=== PATIENT | female | born 1955 | race Caucasian/White ===

== ENCOUNTER 2017-10-16 09:54 | Emergency (ER) | payer BC ==
[2017-10-16] MEDS: Sodium Chloride 0.9% 1,000 ML IV SCH (10:32)
[2017-10-16] MEDS: Ondansetron 4 MG/2 ML SDV IV ONE (10:32)
[2017-10-16 11:10] LABS: ANION GAP 13.8; CHLORIDE,CL 104 mmol/L (101-111); SODIUM,NA 139 mmol/L (135-145)
[2017-10-16] MEDS: Famotidine 20 MG/2 ML SDV IVPUSH ONE (11:51)
[2017-10-16] MEDS: Metoclopramide 10 MG/2 ML SDV IVPUSH ONE (11:53)
[2017-10-16] MEDS: Morphine 2 MG/ML Syringe IVPUSH ONE (11:56)
[2017-10-16 12:00] VITALS: BP 126/72
[2017-10-16] MEDS: Iopamidol 612 MG/ML 100 ML Bottle IVPUSH ONE (12:15)
[2017-10-16] MEDS: Sodium Chloride 0.9% 1,000 ML IV ONE (12:29)
--- NOTE | 2017-10-16 12:48 | CT ---
Clinical history: 62-year-old hypertensive female smoker with abdominal distention, pain and vomiting who has had previous abdominal surgeries (cholecystectomy and hysterectomy). Scan technique: Volume acquisition of data from the abdomen and pelvis obtained without oral contrast but during the intravenous ministration 75 cc nonionic Isovue contrast (3 cc/s via injector) while t he patient was lying supine Siemens multi slice scanner [facility]. All data archived in the PACS system for storage, reformatting axial/sagittal/coronal planes and study. Interpretation: 1. *Surgical clips gallbladder fossa RUQ. Distal abdominal aortic aneurysm just proximal to the commo n iliac artery bifurcation (4.6 cm L x 4.1 cm W x 3.9 cm AP diameter). No retroperitoneal dissection or aneurysmal extension into the iliac arteries. Note: Aneurysm appears larger in cross sectional diameter since MRI exam (3.5 cm) 17 January 2016. 2. Numerous diverticula scattered across course of the entire colon i.e. peralta colonic diverticulosis w ithout associated inflammatory "dirty" peritoneal fat, abscess or signs of mechanical bowel obstructi on. 3. Subtle low attenuation lesions (x2) anteriorly lower margin right lobe of the liver that measure a pproximately 2 cm in diameter. No abnormal dilatation of the intra or extrahepatic biliary ducts. Nor mal hepatic size and anatomic configuration. 4. Stomach, spleen, pancreas, adrenal glands and kidneys unremarkable. Symmetrically distended normal Urinary bladder. 5. No pelvic/abdominal mass lesion, significant mesenteric/retroperitoneal lymphadenopathy or inflamm atory "dirty" peritoneal fat. 6. No ventral wall or inguinal hernias. Normal cardiac silhouette. Lung bases clear. Lumbar spine unr emarkable for age. CONCLUSION: Small distal abdominal aortic aneurysm. Pancolonic diverticulosis. Cholecystectomy and henderson btle abnormality right lobe of the liver. (See above) No intraperitoneal mass, signs of mechanical laure wel obstruction or acute peritonitis.
--- NOTE | 2017-10-16 13:27 | EDM.PDOC ---
ED HPI GENERAL MEDICAL PROBLEM - General Chief Complaint: Gastrointestinal Problem Stated Complaint: SICK Time Seen by Provider: 10/16/17 10:00 Source of Information: Reports: Patient History Limitations: Reports: No Limitations - History of Present Illness INITIAL COMMENTS - FREE TEXT/NARRATIVE: abdominal pain and vomiting since Saturday carlin - Related Data Allergies Allergy/AdvReac Type Severity Reaction Status Date / Time No Known Allergies Allergy Verified 10/16/17 10:03 Home Meds: Home Meds Losartan [Cozaar] 50 mg PO DAILY 07/11/15 [History] Metoprolol Succinate [Toprol XL 100mg] 100 mg PO DAILY 07/11/15 [History] Rosuvastatin [Crestor] 40 mg PO DAILY 07/11/15 [History] DULoxetine HCl [Duloxetine HCl] 60 mg PO DAILY 10/16/17 [History] Past Medical History HEENT History: Reports: Impaired Vision Other HEENT History: wears glasses Cardiovascular History: Reports: High Cholesterol, Hypertension Respiratory History: Reports: Other (See Below) Other Respiratory History: pluesy Gastrointestinal History: Reports: GERD Neurological History: Reports: CVA Psychiatric History: Reports: Depression - Past Surgical History GI Surgical History: Reports: Cholecystectomy Social & Family History - Family History Family Medical History: Noncontributory - Tobacco Use Smoking Status *Q: Current Every Day Smoker Years of Tobacco use: 40 Packs/Tins Daily: 1 - Caffeine Use Caffeine Use: Reports: Coffee, Soda - Recreational Drug Use Recreational Drug Use: No ED ROS GENERAL - Review of Systems Review Of Systems: See Below Constitutional: Reports: Fatigue, Decreased Appetite HEENT: Reports: No Symptoms, Glasses Respiratory: Reports: No Symptoms Cardiovascular: Reports: Lightheadedness GI/Abdominal: Reports: Abdominal Pain, Decreased Appetite, Distension, Nausea, Vomiting. Denies: Constipation, Diarrhea, Hematemesis : Reports: No Symptoms Musculoskeletal: Reports: No Symptoms Skin: Reports: No Symptoms Neurological: Reports: No Symptoms Psychiatric: Reports: No Symptoms Immunologic: Reports: No Symptoms ED EXAM, GI/ABD - Physical Exam Exam: See Below Exam Limited By: No Limitations General Appearance: Alert, Mild Distress Eyes: Bilateral: EOMI Ears: Normal External Exam Nose: Normal Inspection Throat/Mouth: Normal Inspection Head: Atraumatic, Normocephalic Neck: Normal Inspection Respiratory/Chest: No Respiratory Distress, Lungs Clear, Normal Breath Sounds Cardiovascular: Normal Peripheral Pulses, Regular Rate, Rhythm, No Edema GI/Abdominal Exam: No Distention, No Mass, Tender (general greater epigastric). No: Distended, Guarding Back Exam: Full Range of Motion Extremities: Normal Inspection Neurological: Alert, Oriented, Normal Cognition Skin Exam: Warm, Dry, Intact, Pallor Course - Vital Signs Last Recorded V/S: Last Vital Signs Temp 98.2 F 10/16/17 11:58 Pulse 83 10/16/17 11:58 Resp 16 10/16/17 11:58 BP 126/72 10/16/17 11:58 Pulse Ox 95 10/16/17 11:58 - Orders/Labs/Meds Orders: Active Orders 24 hr Category Date Time Status EKG Documentation Completion [RC] ROUTINE Care 10/16/17 10:48 Active UA W/MICROSCOPIC [URIN] Stat Lab 10/16/17 11:06 Ordered Labs: Laboratory Tests 10/16/17 10/16/17 10/16/17 Range/Units 10:19 10:19 10:19 WBC 8.8 (5.0-10.0) 10^3/uL RBC 5.01 (4.2-5.4) 10^6/uL Hgb 15.1 D (12.0-16.0) g/dL Hct 46.2 (37.0-47.0) % MCV 92.2 D (80-100) fL MCH 30.1 (27.0-34.0) pg MCHC 32.7 L (33.0-35.0) g/dL Plt Count 161 D (150-450) 10^3/uL Neut % (Auto) 73.6 (42.2-75.2) % Lymph % (Auto) 17.5 L (20.5-50.1) % Eddy % (Auto) 6.2 (2-8) % Eos % (Auto) 2.5 (1.0-3.0) % Baso % (Auto) 0.2 (0.0-1.0) % Sodium 139 (135-145) mmol/L Potassium 3.8 (3.6-5.0) mmol/L Chloride 104 (101-111) mmol/L Carbon Dioxide 25.0 (21.0-31.0) mmol/L Anion Gap 13.8 BUN 22 H (7-18) mg/dL Creatinine 1.3 (0.6-1.3) mg/dL Est Cr Clr Drug Dosing 41.47 mL/min Estimated GFR (MDRD) 41 BUN/Creatinine Ratio 16.92 Glucose 136 H (74-105) mg/dL Calcium 10.9 H (8.4-10.2) mg/dl Total Bilirubin 0.7 (0.2-1.0) mg/dL AST 29 (10-42) IU/L ALT 15 (10-60) IU/L Alkaline Phosphatase 105 (42-121) IU/L Troponin I < 0.02 (0.00-0.02) ng/ml C-Reactive Protein 4.6 H (0.0-1.3) mg/dL Total Protein 7.9 (6.7-8.2) g/dl Albumin 4.3 (3.2-5.5) g/dl Globulin 3.6 Albumin/Globulin Ratio 1.19 Urine Color (YELLOW) Urine Appearance (CLEAR) Urine pH (5.0-9.0) Ur Specific [place] (1.005-1.030) Urine Protein (NEGATIVE) Urine Glucose (UA) (NEGATIVE) Urine Ketones (NEGATIVE) Urine Occult Blood (NEGATIVE) Urine Nitrite (NEGATIVE) Urine Bilirubin (NEGATIVE) Urine Urobilinogen (0.2-1.0) mg/dL Ur Leukocyte Esterase (NEGATIVE) Urine RBC /HPF Urine WBC (0-5/HPF) /HPF Ur Epithelial Cells /HPF Amorphous Sediment (0/HPF) /HPF Urine Bacteria (0-FEW/HPF) /HPF Fine Granular Casts (0/LPF) /LPF Urine Mucus /LPF 10/16/17 Range/Units 11:06 WBC (5.0-10.0) 10^3/uL RBC (4.2-5.4) 10^6/uL Hgb (12.0-16.0) g/dL Hct (37.0-47.0) % MCV (80-100) fL MCH (27.0-34.0) pg MCHC (33.0-35.0) g/dL Plt Count (150-450) 10^3/uL Neut % (Auto) (42.2-75.2) % Lymph % (Auto) (20.5-50.1) % Eddy % (Auto) (2-8) % Eos % (Auto) (1.0-3.0) % Baso % (Auto) (0.0-1.0) % Sodium (135-145) mmol/L Potassium (3.6-5.0) mmol/L Chloride (101-111) mmol/L Carbon Dioxide (21.0-31.0) mmol/L Anion Gap BUN (7-18) mg/dL Creatinine (0.6-1.3) mg/dL Est Cr Clr Drug Dosing mL/min Estimated GFR (MDRD) BUN/Creatinine Ratio Glucose (74-105) mg/dL Calcium (8.4-10.2) mg/dl Total Bilirubin (0.2-1.0) mg/dL AST (10-42) IU/L ALT (10-60) IU/L Alkaline Phosphatase (42-121) IU/L Troponin I (0.00-0.02) ng/ml C-Reactive Protein (0.0-1.3) mg/dL Total Protein (6.7-8.2) g/dl Albumin (3.2-5.5) g/dl Globulin Albumin/Globulin Ratio Urine Color Dark yellow (YELLOW) Urine Appearance Cloudy (CLEAR) Urine pH 5.5 (5.0-9.0) Ur Specific [place] >= 1.030 (1.005-1.030) Urine Protein >=300 H (NEGATIVE) Urine Glucose (UA) Negative (NEGATIVE) Urine Ketones Negative (NEGATIVE) Urine Occult Blood Negative (NEGATIVE) Urine Nitrite Negative (NEGATIVE) Urine Bilirubin Small H (NEGATIVE) Urine Urobilinogen 0.2 (0.2-1.0) mg/dL Ur Leukocyte Esterase Negative (NEGATIVE) Urine RBC 0-5 /HPF Urine WBC 0-5 (0-5/HPF) /HPF Ur Epithelial Cells Many H /HPF Amorphous Sediment Few (0/HPF) /HPF Urine Bacteria Few (0-FEW/HPF) /HPF Fine Granular Casts Few H (0/LPF) /LPF Urine Mucus Many H /LPF Meds: Medications Discontinued Medications Generic Name Dose Route Start Last Admin Trade Name Freq PRN Reason Stop Dose Admin Famotidine 20 mg 10/16/17 11:40 10/16/17 11:51 Pepcid IVPUSH 10/16/17 11:41 20 mg ONETIME ONE Administration Sodium Chloride 1,000 mls @ 999 mls/hr 10/16/17 10:30 10/16/17 10:32 Normal Saline IV 999 mls/hr ASDIRECTED EMILIANO Administration Sodium Chloride 1,000 mls @ 999 mls/hr 10/16/17 12:11 10/16/17 12:29 Normal Saline IV 10/16/17 13:11 999 mls/hr .BOLUS ONE Administration Iopamidol 100 ml 10/16/17 11:41 10/16/17 12:15 Isovue-300 (61%) IVPUSH 10/16/17 11:42 75 ml ONETIME ONE Administration Metoclopramide HCl 10 mg 10/16/17 11:40 10/16/17 11:53 Reglan IVPUSH 10/16/17 11:41 10 mg ONETIME ONE Administration Morphine Sulfate 2 mg 10/16/17 11:40 10/16/17 11:56 Morphine IVPUSH 10/16/17 11:41 2 mg ONETIME ONE Administration Ondansetron HCl 4 mg 10/16/17 10:24 10/16/17 10:32 Zofran IV 10/16/17 10:25 4 mg ONETIME ONE Administration Departure - Departure Time of Disposition: 13:22 Disposition: Home, Self-Care 01 Condition: Good Clinical Impression: Vomiting, Gastroenteritis Diverticulosis Qualifiers: Diverticulosis site: diverticulosis of small and large intestine Diverticulosis bleeding: diverticulosis without bleeding Qualified Code(s): K57.50 - Diverticulosis of both small and large intestine without perforation or abscess without bleeding - Discharge Information *PRESCRIPTION DRUG MONITORING PROGRAM REVIEWED*: No *COPY OF PRESCRIPTION DRUG MONITORING REPORT IN PATIENT MAGUI: No Instructions: Viral Gastroenteritis, Adult, [id number] Referrals: Alejandra Scott PA-C [Primary Care Provider] - Forms: ED Department Discharge Additional Instructions: clear liquid diet, small sips gradual increase in amount and frequency omeprazole 20mg one twice daily for 5 days then daily bland diet follow with primary care in one - two weeks zofran 4mg odt one every 6 hours as needed for nausea vomiting - My Orders Last 24 Hours: My Active Orders 10/16/17 10:48 EKG Documentation Completion [RC] ROUTINE 10/16/17 11:06 UA W/MICROSCOPIC [URIN] Stat - Assessment/Plan Last 24 Hours: My Active Orders 10/16/17 10:48 EKG Documentation Completion [RC] ROUTINE 10/16/17 11:06 UA W/MICROSCOPIC [URIN] Stat
--- NOTE | 2017-10-18 14:18 | EKG ---
10/16/2017 - JOHANA MARTINEZ LESLIE - FINDINGS: This 12-lead EKG shows a normal sinus rhythm with a ventricular rate of 77. Occasional premature atrial complex. No acute ST-T wave changes. [facility] /[id number]
== END 2017-10-16 13:48 | disposition home or self-care (01) ==
LOC: DL.ED 09:54
DX: K57.50 Diverticulosis of both small and large intestine without perforation or abscess without bleeding (principal); K52.9 Noninfective gastroenteritis and colitis, unspecified; F17.210 Nicotine dependence, cigarettes, uncomplicated; I10 Essential (primary) hypertension; Z79.899 Other long term (current) drug therapy
CPT/HCPCS: 36415; 74177; 80053; 81001; 84484; 85025; 86140; 93005; 96361; 96374; 96375; 99285; J2270; J2405; J2765; J3490; J7030; Q9967

== ENCOUNTER 2020-01-11 06:19 | Day surgery (SDC) | payer MEDICARE, MEDICAID ==
[~2020-01-11 06:19] MED LIST: Dextrose 5%-0.45% NaCl 1,000 ML IV SCH; Midazolam 1 MG/ML 2 ML SDV ONE; Sodium Chloride 0.9% 10 ML Syringe FLUSH PRN; fentaNYL 100 MCG/2 ML SDV ONE
[2020-01-11] MEDS ORDERED: Midazolam 1 MG/ML 2 ML SDV IV ONE ×3 (06:20→07:40)
[2020-01-11] MEDS ORDERED: fentaNYL 100 MCG/2 ML SDV IV ONE ×3 (06:20→07:39)
[2020-01-11 10:04] VITALS: BP 143/79; PULSE 72
--- NOTE | 2020-01-11 10:12 | OR ---
DATE: 01/11/2020 PROCEDURE: Esophagogastroduodenoscopy and multiple pinch biopsies. INSTRUMENT USED: [id number] Olympus video panendoscope. PREMEDICATIONS: No oral or topical anesthesia used. Fentanyl 100 mcg intravenous, Versed 2 mg intravenous. Nasal O2 cannula. The procedure was done under pulse oximetry, BP recording, and hemp fiber taker off. INDICATION: The patient with persistent multiple abdominal symptoms, including abdominal pain, dyspepsia, regurgitation, heartburn, as well as dysphagia, unexplained and not responsive to medical measures, also has anemia, on long- term aspirin and also on PPI. Esophagogastroduodenoscopy is performed for detection of any active erosive lesions, Thomas esophagus and/or malignancy also under consideration, H. pylori status to be determined, small bowel biopsies to be obtained for celiac disease, esophageal dilatations if indicated, endoscopic hemostasis therapy if needed. The scope was passed with ease. Adequate visualization of the esophagus was made from [id number] areas. No upper esophageal lesions identified. No distal esophageal stricture. No uphill or downhill esophageal varices. No Julia-Abreu tear. No evidence of erosive esophagitis by Ziebach criteria. No esophageal polyp or tumor mass identified. Z-line was seen at around 40 cm distal to the oral verge, configuration consistent with grade 1 by ZAP classification. No proximal gastric varices noted. Gastric fundus examination by retroflexion showed no polypoid lesions. No gastric ulcer, malignant mass, or vascular ectasia identified. Pre-pyloric gastric antral erosion was noted without bleeding from it. The examination was a bit compromised due to the presence of solid food material, especially large in amount in the antrum limiting visualization. Duodenal bulb showed no ulcer. Visualized second part of the duodenum was unremarkable. Multiple pinch biopsies, 4 in number were taken from different areas of the second part of the duodenum and tissues were also obtained from the duodenal bulb at 9 and 12 o'clock positions and sent for histopathological evidence of celiac disease. Multiple pinch biopsies were also obtained from the gastric antrum and proximal body and send for PyloriTek test for H. pylori and histopathology. No bleeding was noted from any of the visualized areas at the completion of examination. IMPRESSION: 1. Gastroparesis. 2. Gastric antral erosion. The patient tolerated the procedure well. MOD /[id number]
== END 2020-01-11 09:48 | disposition home or self-care (01) ==
LOC: DL.ENDO 06:19
PROVIDERS: ATTEND Internal Medicine Gastroenterology
DX: K29.50 Unspecified chronic gastritis without bleeding (principal); K31.89 Other diseases of stomach and duodenum; K25.9 Gastric ulcer, unspecified as acute or chronic, without hemorrhage or perforation; K31.84 Gastroparesis; E66.09 Other obesity due to excess calories; E78.5 Hyperlipidemia, unspecified; I12.9 Hypertensive chronic kidney disease with stage 1 through stage 4 chronic kidney disease, or unspecified chronic kidney disease; N18.9 Chronic kidney disease, unspecified; F41.1 Generalized anxiety disorder; F32.9 Major depressive disorder, single episode, unspecified; F17.210 Nicotine dependence, cigarettes, uncomplicated; I71.4 Abdominal aortic aneurysm, without rupture; M54.5 Low back pain; R73.9 Hyperglycemia, unspecified; Z90.710 Acquired absence of both cervix and uterus; Z86.73 Personal history of transient ischemic attack (TIA), and cerebral infarction without residual deficits; Z90.49 Acquired absence of other specified parts of digestive tract; Z88.5 Allergy status to narcotic agent; Z88.8 Allergy status to other drugs, medicaments and biological substances; Z68.33 Body mass index [BMI] 33.0-33.9, adult
CPT/HCPCS: 43239; 87077; J2250; J3010; J7042

== ENCOUNTER 2020-04-11 10:58 | Emergency (ER) | payer MEDICARE, MEDICAID ==
[2020-04-11 11:30] VITALS: BP 168/79; PULSE 71
--- NOTE | 2020-04-11 11:48 | EDM.PDOC ---
<Niall Logan Marques - Last Filed: 04/11/20 15:22> ED HPI GENERAL MEDICAL PROBLEM - General Chief Complaint: Abdominal Pain Stated Complaint: ABD SWELLING Time Seen by Provider: 04/11/20 11:15 Source of Information: Reports: Patient, Family History Limitations: Reports: No Limitations - History of Present Illness INITIAL COMMENTS - FREE TEXT/NARRATIVE: 64 y/o f c/o abd for several days. Was recently evaluated her at the hospital for pancreatitis and abdominal pain. Pt states she feels constipated and has not had a good bowel movement in 3 days. Pt was prescribed Lactulose for her constipation but quit taking it because it caused her diarrhea. Daughter states pt has been fatigued, weak and sleeping al ot since her discharge from [facility] on 03-10 this year. Hx of renal disease, aortic stent placement, constipation. Denies fever, cough, chills, cp, sob, extremity pain, difficulty with urination. Onset: Unknown/Unsure Duration: Day(s): Location: Reports: Abdomen, Generalized Quality: Reports: Ache, Pressure Severity: Mild Improves with: Reports: None Worsens with: Reports: Movement Associated Symptoms: Reports: Malaise - Related Data Allergies Allergy/AdvReac Type Severity Reaction Status Date / Time codeine Allergy Abdominal Verified 01/18/20 10:21 Pain lisinopril Allergy Cough Verified 01/18/20 10:21 cats Allergy Cough Uncoded 01/18/20 10:21 Home Meds: Home Meds Metoprolol Succinate [Toprol XL 100mg] 100 mg PO DAILY 07/11/15 [History] Aspirin 81 mg PO DAILY 01/08/20 [History] Cinacalcet [Sensipar] 30 mg PO DAILY 01/08/20 [History] Escitalopram [Lexapro] 20 mg PO DAILY 01/08/20 [History] Folic Acid 1 mg PO DAILY 01/08/20 [History] Furosemide 80 mg PO ASDIRECTED 01/08/20 [History] Gabapentin [Neurontin] 100 mg PO TID 01/08/20 [History] Mupirocin Oint [Bactroban Oint] 1 squirt TOP ASDIRECTED 01/08/20 [History] Potassium Chloride 10 meq PO DAILY 01/08/20 [History] atorvaSTATin Calcium [Atorvastatin Calcium] 40 mg PO BEDTIME 01/08/20 [History] busPIRone [Buspar] 5 mg PO BID 01/08/20 [History] calcitrioL [Calcitriol] 0.5 mcg PO ASDIRECTED 01/08/20 [History] clonazePAM [Clonazepam] 0.5 mg PO DAILY 01/08/20 [History] gemfibroziL [Gemfibrozil] 300 mg PO BID 01/08/20 [History] hydrOXYzine HCL [hydrOXYzine] 25 mg PO TID PRN 01/08/20 [History] Lactulose 15 ml PO DAILY 01/18/20 [History] Nicotine Polacrilex [Nicotine Gum] 2 mg CHEW ASDIRECTED 01/18/20 [History] Pantoprazole [ProTONIX] 40 mg PO DAILY 01/18/20 [History] Past Medical History HEENT History: Reports: Glaucoma, Impaired Vision, Other (See Below) Other HEENT History: wears glasses. L) eye blindness. 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: Musculoskeletal History: Reports: Arthritis, Back Pain, Chronic Neurological History: Reports: CVA, Other (See Below) Other Neuro History: CEREBRAL VASCULAR DISEASE Psychiatric History: Reports: Anxiety, Depression Endocrine/Metabolic History: Reports: Hyperparathyroidism, Obesity/BMI 30+ Hematologic History: Reports: Anemia Immunologic History: Reports: None Oncologic (Cancer) History: Reports: None Dermatologic History: Reports: None - Infectious Disease History Infectious Disease History: Reports: Chicken Pox, Measles, Mumps - Past Surgical History Head Surgeries/Procedures: Reports: None HEENT Surgical History: Reports: Oral Surgery Cardiovascular Surgical History: Reports: None Respiratory Surgical History: Reports: None GI Surgical History: Reports: Cholecystectomy, Hernia Repair/Other Female Surgical History: Reports: Hysterectomy, Tubal Ligation Endocrine Surgical History: Reports: None Neurological Surgical History: Reports: None Musculoskeletal Surgical History: Reports: None Oncologic Surgical History: Reports: None Dermatological Surgical History: Reports: None Social & Family History - Family History Family Medical History: No Pertinent Family History - Tobacco Use Tobacco Use Status *Q: Current Every Day Tobacco User Years of Tobacco use: 43 Packs/Tins Daily: 1 - Caffeine Use Caffeine Use: Reports: None Other Caffeine Use: COUPLE OF CUPS IN THE AM - Recreational Drug Use Recreational Drug Use: No ED ROS GENERAL - Review of Systems Review Of Systems: Comprehensive ROS is negative, except as noted in HPI. ED EXAM, GI/ABD - Physical Exam Exam: See Below Exam Limited By: No Limitations General Appearance: Alert Ears: Normal External Exam, Normal Canal, Hearing Grossly Normal, Normal TMs Nose: Normal Inspection, Normal Mucosa, No Blood Throat/Mouth: Normal Inspection, Normal Lips, Normal Teeth, Normal Gums, Normal Oropharynx, Normal Voice, No Airway Compromise Head: Atraumatic, Normocephalic Neck: Normal Inspection, Supple, Non-Tender, Full Range of Motion Respiratory/Chest: No Respiratory Distress, Lungs Clear, Normal Breath Sounds, No Accessory Muscle Use, Chest Non-Tender Cardiovascular: Normal Peripheral Pulses, Regular Rate, Rhythm, No Edema, No Gallop, No JVD, No Murmur, No Rub GI/Abdominal Exam: Normal Bowel Sounds, Tender (Female) Exam: Deferred Extremities: Normal Inspection, Normal Range of Motion, No Pedal Edema Neurological: Alert, Oriented, CN II-XII Intact, Normal Cognition, Normal Gait, Normal Reflexes, No Motor/Sensory Deficits Psychiatric: Normal Affect, Normal Mood Skin Exam: Warm, Dry, Intact, Normal Color, No Rash Course - Re-Assessments/Exams Free Text/Narrative Re-Assessment/Exam: 04/11/20 15:22 Pt is feeling much better after fluid administrations and would like to be discharged home. Pt has a nephrology appointment on Saturday with her doctor in [place]. Departure - Departure Time of Disposition: 15:23 Disposition: Home, Self-Care 01 Condition: Good Clinical Impression: Dehydration Constipation Qualifiers: Constipation type: unspecified constipation type Qualified Code(s): K59.00 - Constipation, unspecified - Discharge Information *PRESCRIPTION DRUG MONITORING PROGRAM REVIEWED*: Not Applicable *COPY OF PRESCRIPTION DRUG MONITORING REPORT IN PATIENT MAGUI: Not Applicable Instructions: Constipation, Adult, [id number], Dehydration, Adult, [id number] Forms: ED Department Discharge Additional Instructions: If any new symptoms or concerns develop contact your primary care facility or return to the ER. 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 Continue to use your lactulose and consider Metamucil to help establish regular bowel habits. Stay hydrated and continue your dialysis at home. Sepsis Event Note (ED) - Evaluation Sepsis Screening Result: No Definite Risk <Kodak Mancera - Last Filed: 04/11/20 15:32> Course - Vital Signs Last Recorded V/S: Last Vital Signs Temp 35.3 C L 04/11/20 11:20 Pulse 71 04/11/20 11:20 Resp 18 04/11/20 11:20 BP 168/79 H 04/11/20 11:20 Pulse Ox 93 L 04/11/20 11:20 - Orders/Labs/Meds Orders: Active Orders 24 hr Category Date Time Status EKG Documentation Completion [RC] STAT Care 04/11/20 11:22 Active Labs: Laboratory Tests 04/11/20 04/11/20 04/11/20 Range/Units 11:38 11:38 11:38 WBC 6.0 (5.0-10.0) 10^3/uL RBC 3.12 L (4.2-5.4) 10^6/uL Hgb 8.6 L D (12.0-16.0) g/dL Hct 27.3 L (37.0-47.0) % MCV 87.5 D (80-100) fL MCH 27.6 (27.0-34.0) pg MCHC 31.5 L (33.0-35.0) g/dL Plt Count 147 L (150-450) 10^3/uL Neut % (Auto) 76.0 H (42.2-75.2) % Lymph % (Auto) 12.9 L (20.5-50.1) % [place] % (Auto) 8.5 H (2-8) % Eos % (Auto) 2.3 (1.0-3.0) % Baso % (Auto) 0.3 (0.0-1.0) % PT 10.8 (9.0-12.0) SEC INR 1.1 (0.9-1.2) Sodium 139 (136-145) mmol/L Potassium 4.5 (3.5-5.1) mmol/L Chloride 101 (98-107) mmol/L Carbon Dioxide 25 (21-32) mmol/L Anion Gap 17.5 H (7-13) mEq/L BUN 46 H (7-18) mg/dL Creatinine 6.09 H* (0.55-1.02) mg/dL Est Cr Clr Drug Dosing 8.29 mL/min Estimated GFR (MDRD) 7 BUN/Creatinine Ratio 7.6 (No establ ref range) Glucose 130 H (74-99) mg/dL Lactic Acid (0.4-2.0) mmol/L Calcium 8.4 L (8.5-10.1) mg/dL Magnesium 1.4 L (1.8-2.4) mg/dL Total Bilirubin 0.4 (0.2-1.0) mg/dL AST 24 (15-37) U/L ALT 12 L (14-59) U/L Alkaline Phosphatase 129 H (46-116) U/L Troponin I < 0.017 (0.000-0.056) ng/mL Total Protein 6.8 (6.4-8.2) g/dL Albumin 2.5 L (3.4-5.0) g/dL Globulin 4.3 Albumin/Globulin Ratio 0.58 Amylase 29 (25-115) U/L Lipase 127 (73-393) U/L Urine Color (YELLOW) Urine Appearance (CLEAR) Urine pH (5.0-9.0) Ur Specific [place] (1.005-1.030) Urine Protein (NEGATIVE) Urine Glucose (UA) (NEGATIVE) Urine Ketones (NEGATIVE) Urine Occult Blood (NEGATIVE) Urine Nitrite (NEGATIVE) Urine Bilirubin (NEGATIVE) Urine Urobilinogen (0.2-1.0) mg/dL Ur Leukocyte Esterase (NEGATIVE) Urine RBC /HPF Urine WBC (0-5/HPF) /HPF Ur Epithelial Cells (NOT SEEN) /HPF Urine Bacteria (0-FEW/HPF) /HPF Urine Mucus (NOT SEEN) /LPF SARS CoV-2 RNA Rapid SIDRA (NEGATIVE) 04/11/20 04/11/20 04/11/20 Range/Units 11:38 13:27 14:14 WBC (5.0-10.0) 10^3/uL RBC (4.2-5.4) 10^6/uL Hgb (12.0-16.0) g/dL Hct (37.0-47.0) % MCV (80-100) fL MCH (27.0-34.0) pg MCHC (33.0-35.0) g/dL Plt Count (150-450) 10^3/uL Neut % (Auto) (42.2-75.2) % Lymph % (Auto) (20.5-50.1) % [place] % (Auto) (2-8) % Eos % (Auto) (1.0-3.0) % Baso % (Auto) (0.0-1.0) % PT (9.0-12.0) SEC INR (0.9-1.2) Sodium (136-145) mmol/L Potassium (3.5-5.1) mmol/L Chloride (98-107) mmol/L Carbon Dioxide (21-32) mmol/L Anion Gap (7-13) mEq/L BUN (7-18) mg/dL Creatinine (0.55-1.02) mg/dL Est Cr Clr Drug Dosing mL/min Estimated GFR (MDRD) BUN/Creatinine Ratio (No establ ref range) Glucose (74-99) mg/dL Lactic Acid 0.7 (0.4-2.0) mmol/L Calcium (8.5-10.1) mg/dL Magnesium (1.8-2.4) mg/dL Total Bilirubin (0.2-1.0) mg/dL AST (15-37) U/L ALT (14-59) U/L Alkaline Phosphatase (46-116) U/L Troponin I (0.000-0.056) ng/mL Total Protein (6.4-8.2) g/dL Albumin (3.4-5.0) g/dL Globulin Albumin/Globulin Ratio Amylase (25-115) U/L Lipase (73-393) U/L Urine Color Yellow (YELLOW) Urine Appearance Clear (CLEAR) Urine pH 8.5 (5.0-9.0) Ur Specific [place] 1.020 (1.005-1.030) Urine Protein >=300 H (NEGATIVE) Urine Glucose (UA) Negative (NEGATIVE) Urine Ketones Negative (NEGATIVE) Urine Occult Blood Negative (NEGATIVE) Urine Nitrite Negative (NEGATIVE) Urine Bilirubin Negative (NEGATIVE) Urine Urobilinogen 1.0 (0.2-1.0) mg/dL Ur Leukocyte Esterase Negative (NEGATIVE) Urine RBC Not seen /HPF Urine WBC 0-5 (0-5/HPF) /HPF Ur Epithelial Cells Rare (NOT SEEN) /HPF Urine Bacteria Not seen (0-FEW/HPF) /HPF Urine Mucus Not seen (NOT SEEN) /LPF SARS CoV-2 RNA Rapid SIDRA Negative (NEGATIVE) Meds: Medications Discontinued Medications Generic Name Dose Route Start Last Admin Trade Name Freq PRN Reason Stop Dose Admin Sodium Chloride 1,000 mls @ 999 mls/hr 04/11/20 14:07 04/11/20 15:31 Normal Saline IV 04/11/20 15:07 Infused .BOLUS ONE Infusion - Re-Assessments/Exams Free Text/Narrative Re-Assessment/Exam: 04/11/20 13:59 A second call was placed to [facility] for transfer. They are currently evaluating their facility for beds and will call back "shortly". Free Text/Narrative Re-Assessment/Exam: 04/11/20 15:32 I have examined the patient. I have discussed findings and treatment plan with the PA student. I agree with the assessment and plan in the following students note. Sepsis Event Note (ED) - Focused Exam Vital Signs: Vital Signs Temp Pulse Resp BP Pulse Ox 04/11/20 11:20 35.3 C L 71 18 168/79 H 93 L
[2020-04-11 12:07] LABS: ANION GAP 17.5 mEq/L (7-13); CHLORIDE,CL 101 mmol/L (98-107); SODIUM,NA 139 mmol/L (136-145)
--- NOTE | 2020-04-11 13:17 | CR ---
EXAMINATION: Abdomen 2V AP Flat Upright SEX: Female AGE: 64 years CLINICAL HISTORY: 64-year-old hypertensive female smoker with stage 5 CKD, pancolonic diverticulosis, abdominal aortic aneurysm and "pancreatitis" who presents now with diffuse abdominal pain. Recent CT exam 07 April revealed no acute intraperitoneal abnormality ("aortic graft and aneurysms; peralta colonic diverticulosis; splenomegaly; ascites"). INTERPRETATION: 1. Surgical clips RUQ. Midline aorta iliac graft prostheses. Suprapubic catheter. 2. *No sign of abdominal soft tissue mass, mechanical bowel obstruction or free intraperitoneal air. 3. AP lumbar spine, pelvis and hips unremarkable. Lung bases clear. Conclusion: Nonspecific plain film exam.
[2020-04-11] MEDS ORDERED: Sodium Chloride 0.9% 1,000 ML IV ONE (14:07)
== END 2020-04-11 15:54 | disposition home or self-care (01) ==
LOC: DL.ED 10:58
DX: E86.0 Dehydration (principal); K59.00 Constipation, unspecified; E78.00 Pure hypercholesterolemia, unspecified; K21.9 Gastro-esophageal reflux disease without esophagitis; I12.0 Hypertensive chronic kidney disease with stage 5 chronic kidney disease or end stage renal disease; N18.6 End stage renal disease; D63.1 Anemia in chronic kidney disease; M19.90 Unspecified osteoarthritis, unspecified site; E66.9 Obesity, unspecified; Z68.34 Body mass index [BMI] 34.0-34.9, adult; Z99.2 Dependence on renal dialysis; Z72.0 Tobacco use; Z88.5 Allergy status to narcotic agent; Z88.8 Allergy status to other drugs, medicaments and biological substances; Z91.048 Other nonmedicinal substance allergy status; Z79.82 Long term (current) use of aspirin; Z79.899 Other long term (current) drug therapy; Z20.822 Contact with and (suspected) exposure to COVID-19
CPT/HCPCS: 36415; 74019; 80053; 81001; 82150; 82272; 83605; 83690; 83735; 84484; 85025; 85610; 93005; 99283; 99284-25; J7030; U0002

== ENCOUNTER 2020-04-14 21:39 | Emergency (ER) | payer MEDICARE, MEDICAID ==
[2020-04-14] MEDS ORDERED: Ondansetron 4 MG/2 ML SDV IVPUSH ONE (22:03)
--- NOTE | 2020-04-14 22:09 | EDM.PDOC ---
ED HPI GENERAL MEDICAL PROBLEM - General Chief Complaint: Abdominal Pain Stated Complaint: VOMITING,WEAKNESS,ABDNOMINAL PAIN Time Seen by Provider: 04/14/20 21:56 Source of Information: Reports: Patient, Family (Daughter), Old Records, RN, RN Notes Reviewed History Limitations: Reports: No Limitations - History of Present Illness INITIAL COMMENTS - FREE TEXT/NARRATIVE: Patient presents to ED via personal vehicle with daughter for complaints of abdominal pain. The patient reports a history of CKD and is currently on peritoneal dialysis; she has not had a cycle today. The patient was seen in this facility three days ago for similar symptoms; she was treated with one liter of IVF and verbalized improvement and was subsequently diagnosed with constipation and discharged with instructions to take previously prescribed lactulose. The patient states she began to feel abdominal pain last night prior to going to bed. She characterizes the pain as a burning in her bilateral upper abdomen stating "...it feels like it did when I had pancreatitis." Additionally she attests to nausea with two bouts of emesis. She denies fever, shaking chills, hematemesis, diarrhea, melena, or hematochezia. She states she does continue to produce urine and denies dysuria, hematuria. She states she did have a normal bowel movement today following one enema and one suppository; she states she did not take laxatives. Middle Abdominal Pain Score (Numeric/FACES): 10 - Related Data Allergies Allergy/AdvReac Type Severity Reaction Status Date / Time codeine Allergy Abdominal Verified 04/14/20 21:59 Pain lisinopril Allergy Cough Verified 04/14/20 21:59 cats Allergy Cough Uncoded 04/14/20 21:59 Home Meds: Home Meds Metoprolol Succinate [Toprol XL 100mg] 100 mg PO DAILY 07/11/15 [History] Aspirin 81 mg PO DAILY 01/08/20 [History] Cinacalcet [Sensipar] 30 mg PO DAILY 01/08/20 [History] Escitalopram [Lexapro] 20 mg PO DAILY 01/08/20 [History] Folic Acid 1 mg PO DAILY 01/08/20 [History] Furosemide 80 mg PO ASDIRECTED 01/08/20 [History] Gabapentin [Neurontin] 100 mg PO TID 01/08/20 [History] Mupirocin Oint [Bactroban Oint] 1 squirt TOP ASDIRECTED 01/08/20 [History] Potassium Chloride 10 meq PO DAILY 01/08/20 [History] atorvaSTATin Calcium [Atorvastatin Calcium] 40 mg PO BEDTIME 01/08/20 [History] busPIRone [Buspar] 5 mg PO BID 01/08/20 [History] calcitrioL [Calcitriol] 0.5 mcg PO ASDIRECTED 01/08/20 [History] clonazePAM [Clonazepam] 0.5 mg PO DAILY 01/08/20 [History] gemfibroziL [Gemfibrozil] 300 mg PO BID 01/08/20 [History] hydrOXYzine HCL [hydrOXYzine] 25 mg PO TID PRN 01/08/20 [History] Lactulose 15 ml PO DAILY 01/18/20 [History] Nicotine Polacrilex [Nicotine Gum] 2 mg CHEW ASDIRECTED 01/18/20 [History] Pantoprazole [ProTONIX] 40 mg PO DAILY 01/18/20 [History] Past Medical History HEENT History: Reports: Glaucoma, Impaired Vision, Other (See Below) Other HEENT History: wears glasses. L) eye blindness. 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: Musculoskeletal History: Reports: Arthritis, Back Pain, Chronic Neurological History: Reports: CVA, Other (See Below) Other Neuro History: CEREBRAL VASCULAR DISEASE Psychiatric History: Reports: Anxiety, Depression Endocrine/Metabolic History: Reports: Hyperparathyroidism, Obesity/BMI 30+ Hematologic History: Reports: Anemia Immunologic History: Reports: None Oncologic (Cancer) History: Reports: None Dermatologic History: Reports: None - Infectious Disease History Infectious Disease History: Reports: Chicken Pox, Measles, Mumps - Past Surgical History Head Surgeries/Procedures: Reports: None HEENT Surgical History: Reports: Oral Surgery Cardiovascular Surgical History: Reports: None Respiratory Surgical History: Reports: None GI Surgical History: Reports: Cholecystectomy, Hernia Repair/Other Female Surgical History: Reports: Hysterectomy, Tubal Ligation Endocrine Surgical History: Reports: None Neurological Surgical History: Reports: None Musculoskeletal Surgical History: Reports: None Oncologic Surgical History: Reports: None Dermatological Surgical History: Reports: None Social & Family History - Family History Family Medical History: No Pertinent Family History - Caffeine Use Caffeine Use: Reports: None Other Caffeine Use: COUPLE OF CUPS IN THE AM ED ROS GENERAL - Review of Systems Review Of Systems: Comprehensive ROS is negative, except as noted in HPI. ED EXAM, GI/ABD - Physical Exam Exam: See Below Exam Limited By: No Limitations General Appearance: Alert, Mild Distress (Abdominal pain and nausea) Throat/Mouth: Normal Inspection, Normal Voice, No Airway Compromise Head: Atraumatic, Normocephalic Respiratory/Chest: No Respiratory Distress, Lungs Clear, Normal Breath Sounds, No Accessory Muscle Use, Chest Non-Tender Cardiovascular: Normal Peripheral Pulses, Regular Rate, Rhythm, No Edema, No Gallop, No JVD, No Murmur, No Rub GI/Abdominal Exam: Normal Bowel Sounds, Soft, No Mass, Pelvis Stable, Distended, Guarding, Tender (To bilateral upper quadrants and palpation of LLQ). No: Rigid, Rebound (Female) Exam: Deferred Rectal (Female) Exam: Deferred Back Exam: Normal Inspection, Full Range of Motion. No: CVA Tenderness (L), CVA Tenderness (R) Extremities: Normal Inspection, Normal Range of Motion, Normal Capillary Refill, Pedal Edema (+1 pitting, bilaterally) Neurological: Alert, Oriented, CN II-XII Intact, Normal Cognition, Normal Gait, No Motor/Sensory Deficits Psychiatric: Anxious, Tearful Skin Exam: Warm, Dry, Intact, No Rash, Pallor. No: Ecchymosis, Erythema, Jaundice, Mottled, Petechiae Course - Orders/Labs/Meds Orders: Active Orders 24 hr Category Date Time Status DRUG SCREEN URINE BIORAD [URCHEM] Urgent Lab 04/14/20 21:54 Ordered UA RFX SHELL AND CULT IF INDIC [URIN] Stat Lab 04/14/20 21:54 Ordered Labs: Laboratory Tests 04/14/20 04/14/20 04/14/20 Range/Units 22:05 22:05 22:05 WBC 6.2 (5.0-10.0) 10^3/uL RBC 3.33 L (4.2-5.4) 10^6/uL Hgb 9.4 L (12.0-16.0) g/dL Hct 29.2 L (37.0-47.0) % MCV 87.7 (80-100) fL MCH 28.2 (27.0-34.0) pg MCHC 32.2 L (33.0-35.0) g/dL Plt Count 154 (150-450) 10^3/uL Neut % (Auto) 72.6 (42.2-75.2) % Lymph % (Auto) 17.9 L (20.5-50.1) % [place] % (Auto) 7.3 (2-8) % Eos % (Auto) 1.9 (1.0-3.0) % Baso % (Auto) 0.3 (0.0-1.0) % Sodium 139 (136-145) mmol/L Potassium 3.9 (3.5-5.1) mmol/L Chloride 103 (98-107) mmol/L Carbon Dioxide 21 (21-32) mmol/L Anion Gap 18.9 H (7-13) mEq/L BUN 45 H (7-18) mg/dL Creatinine 5.98 H* (0.55-1.02) mg/dL Est Cr Clr Drug Dosing 9.46 mL/min Estimated GFR (MDRD) 7 BUN/Creatinine Ratio 7.5 (No establ ref range) Glucose 88 (74-99) mg/dL Lactic Acid 0.5 (0.4-2.0) mmol/L Calcium 9.2 (8.5-10.1) mg/dL Magnesium 1.5 L (1.8-2.4) mg/dL Total Bilirubin 0.3 (0.2-1.0) mg/dL AST 24 (15-37) U/L ALT 11 L (14-59) U/L Alkaline Phosphatase 136 H (46-116) U/L C-Reactive Protein 6.9 H (0.0-0.9) mg/dL Total Protein 7.1 (6.4-8.2) g/dL Albumin 2.8 L (3.4-5.0) g/dL Globulin 4.3 Albumin/Globulin Ratio 0.65 Amylase 32 (25-115) U/L Lipase 77 (73-393) U/L Meds: Medications Discontinued Medications Generic Name Dose Route Start Last Admin Trade Name Freq PRN Reason Stop Dose Admin Sodium Chloride 500 mls @ 999 mls/hr 04/14/20 22:57 04/14/20 23:08 Normal Saline IV 04/14/20 23:27 999 mls/hr .BOLUS ONE Administration Magnesium Sulfate/Dextrose 1 gm in 100 mls @ 100 mls/hr 04/14/20 22:57 04/14/20 23:09 Magnesium Sulfate In D5w 1 Gm/100 Ml IV 04/14/20 23:56 100 mls/hr ONETIME ONE Administration Ondansetron HCl 4 mg 04/14/20 22:03 04/14/20 22:28 Zofran IVPUSH 04/14/20 22:04 4 mg ONETIME ONE Administration - Re-Assessments/Exams Free Text/Narrative Re-Assessment/Exam: 04/14/20 Will order Zofran 4mg IVP for nausea while labs are pending. CBC unremarkable for infectious etiology to abdominal pain; microcytic anemia noted, likely related to CKD. ALT 11, AST 24, and Alk Phos mildly elevated at 136. Amylase, and Lipase WNL. Patient reports improvement in pain and nausea following Zofran. Will refrain from abdominal/pelvic CT at this time given fairly normal lab work. Magnesium slightly low at 1.5, will replace along with administration of NS 500cc bolus. Discussed lab work with patient and daughter including LFTs, Lipase, and Amylase. Patient states she does not need to urinate for the UA and feels as though her pain is not related to a kidney stone or UTI. Patient verbalizing continued improvement in abdominal pain following NS 500cc bolus. Patient continues to state she does not need to urinate and will not provide a urine. Patient states she would like to go home. Discussed viral gastroenteritis etiology. Patient and daughter verbalized understanding and agreement with the plan of care. Departure - Departure Time of Disposition: 00:26 Disposition: Home, Self-Care 01 Condition: Good Clinical Impression: Gastroenteritis, History of chronic kidney disease, Elevated C-reactive protein (CRP), Hypochromic anemia Vomiting Qualifiers: Vomiting type: unspecified Vomiting Intractability: non-intractable Nausea presence: with nausea Qualified Code(s): R11.2 - Nausea with vomiting, unspecified - Discharge Information *PRESCRIPTION DRUG MONITORING PROGRAM REVIEWED*: Not Applicable *COPY OF PRESCRIPTION DRUG MONITORING REPORT IN PATIENT MAGUI: Not Applicable Instructions: Viral Gastroenteritis, Adult, [id number] Forms: ED Department Discharge Additional Instructions: 1.) Drink sips of water frequently to avoid dehydration, while considering your fluid restriction for dialysis. 2.) Eat a bland diet while nausea persists. Avoid spicy, high-fat, and greasy foods. 3.) Follow up with your primary care provider regarding today's visit. - My Orders Last 24 Hours: My Active Orders 04/14/20 21:54 DRUG SCREEN URINE BIORAD [URCHEM] Urgent UA RFX SHELL AND CULT IF INDIC [URIN] Stat - Assessment/Plan Last 24 Hours: My Active Orders 04/14/20 21:54 DRUG SCREEN URINE BIORAD [URCHEM] Urgent UA RFX SHELL AND CULT IF INDIC [URIN] Stat
[2020-04-14 22:45] LABS: ANION GAP 18.9 mEq/L (7-13)
[2020-04-14] MEDS ORDERED: Sodium Chloride 0.9% 500 ML IV ONE (22:57)
[2020-04-14] MEDS ORDERED: Magnesium Sulfate/D5W 1 GM/100 ML BAG IV ONE (22:57)
[2020-04-15 00:33] VITALS: PULSE 106
== END 2020-04-15 00:34 | disposition home or self-care (01) ==
LOC: DL.ED 21:39
DX: K52.9 Noninfective gastroenteritis and colitis, unspecified (principal); R79.89 Other specified abnormal findings of blood chemistry; D50.9 Iron deficiency anemia, unspecified; E78.00 Pure hypercholesterolemia, unspecified; K21.9 Gastro-esophageal reflux disease without esophagitis; I12.9 Hypertensive chronic kidney disease with stage 1 through stage 4 chronic kidney disease, or unspecified chronic kidney disease; N18.9 Chronic kidney disease, unspecified; E66.9 Obesity, unspecified; Z68.30 Body mass index [BMI] 30.0-30.9, adult; Z88.5 Allergy status to narcotic agent; Z88.8 Allergy status to other drugs, medicaments and biological substances; Z91.048 Other nonmedicinal substance allergy status; Z86.73 Personal history of transient ischemic attack (TIA), and cerebral infarction without residual deficits
CPT/HCPCS: 36415; 80053; 82150; 83605; 83690; 83735; 85025; 86140; 96365; 96375; 99283; 99284; J2405; J3475; J7030

== ENCOUNTER 2020-07-28 10:41 | Emergency (ER) | payer MEDICARE, MEDICAID ==
--- NOTE | 2020-07-28 10:52 | EDM.PDOC ---
ED HPI GENERAL MEDICAL PROBLEM - General Chief Complaint: Upper Extremity Injury/Pain Stated Complaint: PAIN LEFT HAND TO SHOULDER Time Seen by Provider: 07/28/20 10:49 Source of Information: Reports: Patient, Old Records, RN, RN Notes Reviewed History Limitations: Reports: No Limitations - History of Present Illness INITIAL COMMENTS - FREE TEXT/NARRATIVE: Pt presents to ER from home by POV with c/o pain in the left arm from the hand to the shoulder. Pt denies injury. She states that she woke with severe pain to the left wrist up to the base of the left thumb. As the morning went on some pain began shooting up in to the forearm, and occasionally it hurts all the way up to the shoulder. She admits to some recurrent pain/soreness in the neck, but has never had pain or numbness radiate from the neck down either arm. Pt has ESRD and is on peritoneal dialysis. Denies fever, chills, chest pain, N/V, swelling, redness, numbness, or tingling. Location: Reports: Upper Extremity, Left Quality: Reports: Ache, Sharp, Throbbing Severity: Severe Improves with: Reports: None Worsens with: Reports: Other (Touch/palpation), Movement Associated Symptoms: Reports: No Other Symptoms Left Hand Pain Score (Numeric/FACES): 10 - Related Data Allergies Allergy/AdvReac Type Severity Reaction Status Date / Time codeine Allergy Abdominal Verified 07/28/20 10:56 Pain lisinopril Allergy Cough Verified 07/28/20 10:56 cats Allergy Cough Uncoded 07/28/20 10:56 Home Meds: Home Meds Metoprolol Succinate [Toprol XL 100mg] 100 mg PO DAILY 07/11/15 [History] Aspirin 81 mg PO DAILY 01/08/20 [History] Cinacalcet [Sensipar] 30 mg PO DAILY 01/08/20 [History] Folic Acid 1 mg PO DAILY 01/08/20 [History] Furosemide 80 mg PO ASDIRECTED 01/08/20 [History] Gabapentin [Neurontin] 100 mg PO TID 01/08/20 [History] Mupirocin Oint [Bactroban Oint] 1 squirt TOP ASDIRECTED 01/08/20 [History] Potassium Chloride 10 meq PO BID 01/08/20 [History] atorvaSTATin Calcium [Atorvastatin Calcium] 40 mg PO BEDTIME 01/08/20 [History] calcitrioL [Calcitriol] 0.5 mcg PO ASDIRECTED 01/08/20 [History] gemfibroziL [Gemfibrozil] 300 mg PO BID 01/08/20 [History] hydrOXYzine HCL [hydrOXYzine] 25 mg PO TID PRN 01/08/20 [History] Pantoprazole [ProTONIX] 40 mg PO DAILY 01/18/20 [History] Past Medical History HEENT History: Reports: Glaucoma, Impaired Vision Other HEENT History: wears glasses. L) eye blindness. 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: Musculoskeletal History: Reports: Arthritis, Back Pain, Chronic Neurological History: Reports: CVA Other Neuro History: CEREBRAL VASCULAR DISEASE Psychiatric History: Reports: Anxiety, Depression Endocrine/Metabolic History: Reports: Hyperparathyroidism, Obesity/BMI 30+ Hematologic History: Reports: Anemia Immunologic History: Reports: None Oncologic (Cancer) History: Reports: None Dermatologic History: Reports: None - Infectious Disease History Infectious Disease History: Reports: Chicken Pox, Measles, Mumps - Past Surgical History Head Surgeries/Procedures: Reports: None HEENT Surgical History: Reports: Oral Surgery Cardiovascular Surgical History: Reports: None Respiratory Surgical History: Reports: None GI Surgical History: Reports: Cholecystectomy, Hernia Repair/Other Female Surgical History: Reports: Hysterectomy, Tubal Ligation Endocrine Surgical History: Reports: None Neurological Surgical History: Reports: None Musculoskeletal Surgical History: Reports: None Oncologic Surgical History: Reports: None Dermatological Surgical History: Reports: None Social & Family History - Family History Family Medical History: No Pertinent Family History - Caffeine Use Caffeine Use: Reports: Coffee Other Caffeine Use: COUPLE OF CUPS IN THE AM - Living Situation & Occupation Living situation: Reports: with Family Review of Systems - Review of Systems Review Of Systems: Comprehensive ROS is negative, except as noted in HPI. ED EXAM, GENERAL - Physical Exam Exam: See Below Exam Limited By: No Limitations General Appearance: Alert, No Apparent Distress, Obese, Other (Chronically ill appearing) Eye Exam: Bilateral Eye: Normal Inspection Nose: Normal Inspection Throat/Mouth: Normal Voice, No Airway Compromise Head: Atraumatic, Normocephalic Neck: Normal Inspection, Supple, Non-Tender, Full Range of Motion Respiratory/Chest: No Respiratory Distress, Lungs Clear, Normal Breath Sounds, No Accessory Muscle Use, Chest Non-Tender Cardiovascular: Normal Peripheral Pulses, Regular Rate, Rhythm Back Exam: Normal Inspection Extremities: Arm Pain (Left wrist and hand at 1st MCPJ acutely tender to touch without swelling, redness, bruising, or deformity.), Limited Range of Motion. No: Joint Swelling, Increased Warmth, Mottled, Pallor, Redness Neurological: Alert, Oriented, No Motor/Sensory Deficits Psychiatric: Depressed Mood, Flat Affect Skin Exam: Warm, Dry, Intact, Normal Color, No Rash Course - Vital Signs Last Recorded V/S: Last Vital Signs Temp 97.4 F 07/28/20 10:50 Pulse 79 07/28/20 10:50 Resp 20 07/28/20 10:50 BP 159/89 H 07/28/20 11:00 Pulse Ox 99 07/28/20 10:50 - Orders/Labs/Meds Orders: Active Orders 24 hr Category Date Time Status Wrist Comp Min 3V Lt [CR] Urgent Exams 07/28/20 11:01 Taken Lidocaine 5% Med 07/28/20 12:06 Once 30 gm TOP ONETIME ONE DME for Discharge [COMM] Routine Oth 07/28/20 12:04 Ordered Labs: Laboratory Tests 07/28/20 07/28/20 Range/Units 11:17 11:17 WBC 12.0 H (5.0-10.0) 10^3/uL RBC 3.41 L (4.2-5.4) 10^6/uL Hgb 10.9 L D (12.0-16.0) g/dL Hct 34.5 L (37.0-47.0) % MCV 101.2 H D (80-100) fL MCH 32.0 (27.0-34.0) pg MCHC 31.6 L (33.0-35.0) g/dL Plt Count 205 (150-450) 10^3/uL Neut % (Auto) 78.6 H (42.2-75.2) % Lymph % (Auto) 12.9 L (20.5-50.1) % Linn % (Auto) 6.0 (2-8) % Eos % (Auto) 2.2 (1.0-3.0) % Baso % (Auto) 0.3 (0.0-1.0) % Sodium 139 (136-145) mmol/L Potassium 3.8 (3.5-5.1) mmol/L Chloride 101 (98-107) mmol/L Carbon Dioxide 25 (21-32) mmol/L Anion Gap 16.8 H (7-13) mEq/L BUN 38 H (7-18) mg/dL Creatinine 5.02 H* (0.55-1.02) mg/dL Est Cr Clr Drug Dosing 10.86 mL/min Estimated GFR (MDRD) 9 BUN/Creatinine Ratio 7.6 (No establ ref range) Glucose 122 H (70-99) mg/dL Uric Acid 5.5 (2.6-6.0) mg/dL Calcium 8.8 (8.5-10.1) mg/dL Total Bilirubin 0.3 (0.2-1.0) mg/dL AST 19 (15-37) U/L ALT 12 L (14-59) U/L Alkaline Phosphatase 155 H (46-116) U/L C-Reactive Protein 3.8 H (0.0-0.9) mg/dL Total Protein 7.2 (6.4-8.2) g/dL Albumin 3.1 L (3.4-5.0) g/dL Globulin 4.1 Albumin/Globulin Ratio 0.76 Meds: Medications Discontinued Medications Generic Name Dose Route Start Last Admin Trade Name Brandinq PRN Reason Stop Dose Admin Hydrocodone Bitart/Acetaminophen 1 tab 07/28/20 11:00 07/28/20 11:12 Acetaminophen/Hydrocodone 325-10 Mg Tab PO 07/28/20 11:01 1 tab ONETIME ONE Administration - Radiology Interpretation Free Text/Narrative:: XR Left Wrist: degenerative arthritic change to 1st carpal-MC joint, no fractures, see Rad. report. Departure - Departure Time of Disposition: 12:07 Disposition: Home, Self-Care 01 Condition: Good Clinical Impression: Arthritis of carpometacarpal (CMC) joint of left thumb - Discharge Information *PRESCRIPTION DRUG MONITORING PROGRAM REVIEWED*: No *COPY OF PRESCRIPTION DRUG MONITORING REPORT IN PATIENT MAGUI: No Instructions: Osteoarthritis Forms: ED Department Discharge Additional Instructions: Rx: Hydrocodone APAP 5mg/325mg Rx: Prednisone 20mg Use Lidocaine Ointment 5% to area of pain every 4 hours as needed. Wear splint as needed for comfort. Follow up with your clinic doctor if needed. Sepsis Event Note (ED) - Focused Exam Vital Signs: Vital Signs Temp Pulse Resp BP Pulse Ox 07/28/20 11:00 159/89 H 07/28/20 10:50 97.4 F 79 20 159/102 H 99 - My Orders Last 24 Hours: My Active Orders 07/28/20 11:01 Wrist Comp Min 3V Lt [CR] Urgent 07/28/20 12:04 DME for Discharge [COMM] Routine 07/28/20 12:06 Lidocaine 5% 30 gm TOP ONETIME ONE - Assessment/Plan Last 24 Hours: My Active Orders 07/28/20 11:01 Wrist Comp Min 3V Lt [CR] Urgent 07/28/20 12:04 DME for Discharge [COMM] Routine 07/28/20 12:06 Lidocaine 5% 30 gm TOP ONETIME ONE
[2020-07-28 10:55] VITALS: PULSE 79
[2020-07-28 11:00] VITALS: BP 159/89
[2020-07-28] MEDS ORDERED: Acetaminophen/HYDROcodone 325-10 MG Tab PO ONE (11:00)
[2020-07-28 11:40] LABS: ANION GAP 16.8 mEq/L (7-13)
[2020-07-28] MEDS ORDERED: Lidocaine 5% Oint 35.44 GM Tube TOP ONE (12:06)
--- NOTE | 2020-07-28 12:17 | CR ---
EXAMINATION: Wrist Comp Min 3V Lt SEX: Female AGE: 64 years CLINICAL HISTORY: 64-year-old female complaining of acute left wrist pain (base of thumb). No injury. INTERPRETATION: Abnormal. 1. Chronic severe arthritic degenerative (destructive) changes first carpal metacarpal joint, base of the thumb. 2. Surrounding soft tissue swelling. 3. No sign of left wrist or hand fracture/dislocation. No other appreciable arthritic degenerative changes and joints. 4. No foreign bodies.
== END 2020-07-28 12:27 | disposition home or self-care (01) ==
LOC: DL.ED 10:41
DX: M18.12 Unilateral primary osteoarthritis of first carpometacarpal joint, left hand (principal); I25.10 Atherosclerotic heart disease of native coronary artery without angina pectoris; I12.9 Hypertensive chronic kidney disease with stage 1 through stage 4 chronic kidney disease, or unspecified chronic kidney disease; N18.9 Chronic kidney disease, unspecified; E66.9 Obesity, unspecified; Z68.30 Body mass index [BMI] 30.0-30.9, adult; Z79.82 Long term (current) use of aspirin; Z91.048 Other nonmedicinal substance allergy status; Z91.09 Other allergy status, other than to drugs and biological substances; Z88.5 Allergy status to narcotic agent; Z88.8 Allergy status to other drugs, medicaments and biological substances
CPT/HCPCS: 36415; 73110-LT; 80053; 84550; 85025; 86140; 99283; 99283-25; A9270-GY

== ENCOUNTER 2021-09-18 11:25 | Emergency (ER) | payer MEDICARE, MEDICAID ==
[2021-09-18 11:48] VITALS: BP 139/78; PULSE 85
[2021-09-18] MEDS ORDERED: Acetaminophen/HYDROcodone 325-10 MG Tab PO ONE (11:50)
== END 2021-09-18 13:30 | disposition home or self-care (01) ==
LOC: DL.ED 11:25
DX: M25.551 Pain in right hip (principal); I25.10 Atherosclerotic heart disease of native coronary artery without angina pectoris; E78.00 Pure hypercholesterolemia, unspecified; I12.9 Hypertensive chronic kidney disease with stage 1 through stage 4 chronic kidney disease, or unspecified chronic kidney disease; N18.9 Chronic kidney disease, unspecified; K21.9 Gastro-esophageal reflux disease without esophagitis; E66.9 Obesity, unspecified; Z68.32 Body mass index [BMI] 32.0-32.9, adult; Z95.5 Presence of coronary angioplasty implant and graft; Z86.73 Personal history of transient ischemic attack (TIA), and cerebral infarction without residual deficits; Z88.5 Allergy status to narcotic agent; Z88.8 Allergy status to other drugs, medicaments and biological substances; Z91.09 Other allergy status, other than to drugs and biological substances; Z79.82 Long term (current) use of aspirin; Z79.899 Other long term (current) drug therapy
CPT/HCPCS: 72100; 73502; 99283; 99284; A9270

== ENCOUNTER 2022-01-03 11:58 | Observation (INO) | payer MEDICARE, MEDICAID ==
[2022-01-03] MEDS ORDERED: Sodium Chloride 0.9% 10 ML Syringe FLUSH PRN (12:00)
[2022-01-03 12:39] LABS: PTT,PARTIAL THROMBOPLSTIN TIME 30.9 SEC (22.0-34.0)
[2022-01-03 12:51] LABS: ANION GAP 21.5 mEq/L (7-13)
[2022-01-03] MEDS ORDERED: Potassium Chloride 20 MEQ in Premix Bag 1 BAG IV ONE ×2 (12:54→17:59)
[2022-01-03 12:58] LABS: CORONAVIRUS COVID-19 NAA NEGATIVE (NEGATIVE)
[2022-01-03] MEDS ORDERED: Sodium Chloride 0.9% 1,000 ML IV SCH (13:00)
[2022-01-03] MEDS ORDERED: Acetaminophen/HYDROcodone 325-5 MG Tab PO PRN (16:59)
[2022-01-03] MEDS ORDERED: Acetaminophen 325 MG Tab PO PRN (16:59)
[2022-01-03] MEDS ORDERED: Polyethylene Glycol 3350 Powder 17 GM Packet PO PRN (17:00)
[2022-01-03] MEDS ORDERED: Albuterol/Ipratropium 3.0-0.5 MG/3 ML Neb Soln NEB PRN (17:00)
[2022-01-03] MEDS ORDERED: HYDROmorphone 0.5 MG/0.5 ML Syringe IVPUSH PRN (17:00)
[2022-01-03] MEDS ORDERED: Ondansetron 4 MG/2 ML SDV IVPUSH PRN (17:00)
[2022-01-03] MEDS ORDERED: Magnesium Hydroxide 400 MG/5 ML Susp 30 ML Cup PO PRN (17:00)
[2022-01-03] MEDS ORDERED: Sodium Bicarbonate 100 MEQ in Dextrose 5% in Water 1,000 ML IV ONE ×2 (17:07)
[2022-01-03] MEDS ORDERED: Pantoprazole 40 MG Vial IVPUSH ONE ×2 (17:10→20:30)
[2022-01-03] MEDS ORDERED: Metoprolol Tartrate 5 MG/5 ML SDV IVPUSH PRN (17:11)
[2022-01-03] MEDS ORDERED: hydrALAZINE 20 MG/ML SDV IVPUSH PRN (17:11)
[2022-01-03] MEDS ORDERED: Dextrose 5%-Lactated Ringers 1,000 ML IV SCH (17:15)
[2022-01-03] MEDS ORDERED: Potassium Chloride 10 MEQ Tab.ER PO ONE (17:17)
[2022-01-03] MEDS ORDERED: Glucagon,Human Recombinant 1 MG Vial IM PRN (17:56)
[2022-01-03] MEDS ORDERED: 50% Dextrose in Water 50 ML Syringe IVPUSH PRN (17:56)
[2022-01-03] MEDS: Insulin Lispro 100 Units/ML 3 ML Vial SUBCUT SCH ×2 (18:45→21:57)
[2022-01-03] MEDS ORDERED: Gabapentin 100 MG Cap PO ONE (22:40)
[2022-01-04] MEDS: Insulin Lispro 100 Units/ML 3 ML Vial SUBCUT SCH (02:07)
[2022-01-04 04:35] VITALS: BP 146/88; PULSE 89
[2022-01-04] MEDS ORDERED: Pantoprazole 40 MG Tab.CR PO SCH (06:00)
[2022-01-04] MEDS ORDERED: Calcitriol 0.25 MCG Cap PO SCH (09:00)
[2022-01-04] MEDS ORDERED: Gabapentin 100 MG Cap PO SCH (09:00)
[2022-01-04] MEDS ORDERED: Heparin Sodium 5,000 Units/ML Vial SUBCUT SCH (09:00)
[2022-01-04] MEDS ORDERED: Non-Formulary Medication 1 Each (Cinacalcet [Sensipar] 30 MG Tablet) PO SCH (09:00)
[2022-01-04] MEDS ORDERED: Folic Acid 1 MG Tab PO SCH (09:00)
== END 2022-01-04 06:48 | disposition left against medical advice (07) ==
LOC: DL.ED 11:58 → DL.MS 14:53
PROVIDERS: ADMIT Internal Medicine; ATTEND Internal Medicine
DX: G93.49 Other encephalopathy (principal); R65.10 Systemic inflammatory response syndrome (SIRS) of non-infectious origin without acute organ dysfunction; I25.10 Atherosclerotic heart disease of native coronary artery without angina pectoris; K21.9 Gastro-esophageal reflux disease without esophagitis; N25.81 Secondary hyperparathyroidism of renal origin; G62.9 Polyneuropathy, unspecified; E66.9 Obesity, unspecified; F41.9 Anxiety disorder, unspecified; F32.A Depression, unspecified; I12.9 Hypertensive chronic kidney disease with stage 1 through stage 4 chronic kidney disease, or unspecified chronic kidney disease; N18.9 Chronic kidney disease, unspecified; E78.00 Pure hypercholesterolemia, unspecified; E87.1 Hypo-osmolality and hyponatremia; D72.829 Elevated white blood cell count, unspecified; R73.9 Hyperglycemia, unspecified; E87.20 Acidosis, unspecified; E83.51 Hypocalcemia; E83.42 Hypomagnesemia; R55 Syncope and collapse; E88.09 Other disorders of plasma-protein metabolism, not elsewhere classified; Z86.73 Personal history of transient ischemic attack (TIA), and cerebral infarction without residual deficits; Z99.2 Dependence on renal dialysis; Z98.890 Other specified postprocedural states; Z87.891 Personal history of nicotine dependence; Z88.5 Allergy status to narcotic agent; Z88.8 Allergy status to other drugs, medicaments and biological substances; Z79.82 Long term (current) use of aspirin; Z79.899 Other long term (current) drug therapy; Z20.822 Contact with and (suspected) exposure to COVID-19
CPT/HCPCS: 0240U; 36415; 70450; 71045; 80053; 82150; 82947; 83605; 83690; 83735; 83880; 84145; 84443; 84484; 85025; 85379; 85610; 85730; 86140; 93005; 93880; A9270; C9113; J1170; J3475; J3480; J3490; J7030; J7060; J7121

== ENCOUNTER 2022-08-17 13:00 | Emergency (ER) | payer MEDICARE, MEDICAID ==
[2022-08-17] MEDS ORDERED: Sodium Chloride 0.9% 10 ML Syringe FLUSH PRN (13:12)
[2022-08-17] MEDS ORDERED: Metoclopramide 10 MG/2 ML SDV IVPUSH ONE (13:12)
[2022-08-17 13:25] LABS: BASOPHILS PERCENT AUTO 0.2 % (0.0-1.0); EOSINOPHILS PERCENT AUTO 1.6 % (1.0-3.0); HEMATOCRIT 35.4 % (37.0-47.0); HEMOGLOBIN 11.1 g/dL (12.0-16.0); LYMPHOCYTES PERCENT AUTO 16.8 % (20.5-50.1); MEAN CORPUSCULAR HEMOGLOBIN 30.7 pg (27.0-34.0); MEAN CORPUSCULAR HGB CONC 31.4 g/dL (33.0-35.0); MEAN CORPUSCULAR VOLUME 97.8 fL (80-100); MONOCYTES PERCENT AUTO 6.1 % (2-8); NEUTROPHILS PERCENT AUTO 75.3 % (42.2-75.2); PLATELET COUNT,PLT 155 10^3/uL (150-450); RED BLOOD CELL COUNT 3.62 10^6/uL (4.2-5.4); WHITE BLOOD CELL COUNT,WBC 12.5 10^3/uL (5.0-10.0)
[2022-08-17 13:35] VITALS: BP 161/76; PULSE 66
[2022-08-17 13:45] LABS: A/G RATIO 0.89; ALBUMIN 3.2 g/dL (3.4-5.0); ANION GAP 11.5 mEq/L (7-13); BILIRUBIN TOTAL 0.6 mg/dL (0.2-1.0); BUN/CREATININE RATIO 2.2 (No establ ref range); C-REACTIVE PROTEIN 4.8 mg/dL (0.0-0.9); CALCIUM 8.4 mg/dL (8.5-10.1); CREATININE 2.67 mg/dL (0.55-1.02); EST CRCL DRUG DOSING (CG) 19.88 mL/min; MAGNESIUM 1.5 mg/dL (1.8-2.4); PHOSPHORUS 2.3 mg/dL (2.6-4.7); POTASSIUM,K 3.5 mmol/L (3.5-5.1); PROTEIN TOTAL,TP 6.8 g/dL (6.4-8.2)
[2022-08-17 13:46] LABS: LACTIC ACID 0.7 mmol/L (0.4-2.0)
[2022-08-17 13:48] LABS: PROTHROMBIN TIME 10.4 SEC (9.0-12.0)
[2022-08-17] MEDS ORDERED: Albumin 25% 12.5 GM in Premix Bag 1 BAG IV ONE (15:03)
[2022-08-17] MEDS ORDERED: HYDROmorphone 0.5 MG/0.5 ML Syringe IVPUSH ONE (15:04)
[2022-08-17] MEDS ORDERED: Lidocaine 1% 5 ML VIAL INJECT ONE (15:04)
[2022-08-17] MEDS ORDERED: Lidocaine 1% 50 MG/5 ML Syringe IVPUSH ONE (15:27)
[2022-08-17] MEDS ORDERED: Lidocaine 1% 30 ML SDV ONE (15:30)
[2022-08-17] MEDS ORDERED: Lidocaine 1% 30 ML SDV INJECT ONE (15:45)
== END 2022-08-17 16:55 | disposition home or self-care (01) ==
LOC: DL.ED 13:00
DX: R11.2 Nausea with vomiting, unspecified (principal); R18.8 Other ascites; K21.9 Gastro-esophageal reflux disease without esophagitis; I12.9 Hypertensive chronic kidney disease with stage 1 through stage 4 chronic kidney disease, or unspecified chronic kidney disease; N18.9 Chronic kidney disease, unspecified; E66.9 Obesity, unspecified; Z68.27 Body mass index [BMI] 27.0-27.9, adult; Z86.73 Personal history of transient ischemic attack (TIA), and cerebral infarction without residual deficits; Z88.5 Allergy status to narcotic agent; Z91.09 Other allergy status, other than to drugs and biological substances; Z88.8 Allergy status to other drugs, medicaments and biological substances; Z79.82 Long term (current) use of aspirin; Z79.899 Other long term (current) drug therapy; Z86.16 Personal history of COVID-19
CPT/HCPCS: 36415; 49083; 74176; 80053; 82150; 83605; 83690; 83735; 83880; 84100; 84484; 85025; 85610; 85730; 86140; 87015; 87040; 87070; 87116; 87118; 87149; 87206; 88112; 96365; 96375; 99284; J1170; J2765; P9047; J3490

== ENCOUNTER 2022-12-18 05:27 | Day surgery (SDC) | payer MEDICARE, MEDICAID ==
[2022-12-18] MEDS ORDERED: Dextrose 5%-0.45% NaCl 1,000 ML IV SCH (05:30)
[2022-12-18] MEDS ORDERED: Midazolam 1 MG/ML 2 ML SDV ONE (06:18)
[2022-12-18] MEDS ORDERED: fentaNYL 100 MCG/2 ML SDV ONE (06:19)
[2022-12-18] MEDS ORDERED: fentaNYL 100 MCG/2 ML SDV IV ONE ×2 (06:29→06:30)
[2022-12-18] MEDS ORDERED: Midazolam 1 MG/ML 2 ML SDV IV ONE ×2 (06:31→06:32)
[2022-12-18 07:12] VITALS: PULSE 62
[2022-12-18 07:34] VITALS: BP 147/59
== END 2022-12-18 08:09 | disposition home or self-care (01) ==
LOC: DL.ENDO 05:27
PROVIDERS: ATTEND Internal Medicine Gastroenterology
DX: K21.9 Gastro-esophageal reflux disease without esophagitis (principal); R10.13 Epigastric pain; R13.10 Dysphagia, unspecified; D64.9 Anemia, unspecified; F41.8 Other specified anxiety disorders; M54.50 Low back pain, unspecified; G89.29 Other chronic pain; F41.1 Generalized anxiety disorder; I12.0 Hypertensive chronic kidney disease with stage 5 chronic kidney disease or end stage renal disease; N18.6 End stage renal disease; E78.5 Hyperlipidemia, unspecified; F17.210 Nicotine dependence, cigarettes, uncomplicated; Z88.5 Allergy status to narcotic agent; Z88.8 Allergy status to other drugs, medicaments and biological substances; Z98.890 Other specified postprocedural states; Z90.49 Acquired absence of other specified parts of digestive tract; Z99.2 Dependence on renal dialysis; Z86.73 Personal history of transient ischemic attack (TIA), and cerebral infarction without residual deficits; Z95.828 Presence of other vascular implants and grafts; Z86.010 Personal history of colon polyps; E66.09 Other obesity due to excess calories; Z68.24 Body mass index [BMI] 24.0-24.9, adult
CPT/HCPCS: 87077; J2250; J3010; J7042

== ENCOUNTER 2022-12-25 05:24 | Day surgery (SDC) | payer MEDICARE, MEDICAID, OTHER ==
[2022-12-25] MEDS ORDERED: Lidocaine 1% 30 ML SDV NERVRT ONE (05:25)
[2022-12-25] MEDS ORDERED: Propofol 200 MG/20 ML SDV IV ONE (05:25)
[2022-12-25] MEDS ORDERED: Dextrose 5%-0.45% NaCl 1,000 ML IV SCH (05:30)
[2022-12-25] MEDS ORDERED: Propofol 200 MG/20 ML SDV ONE (06:20)
[2022-12-25 08:18] VITALS: BP 134/78; PULSE 62
== END 2022-12-25 08:26 | disposition home or self-care (01) ==
LOC: DL.ENDO 05:24
PROVIDERS: ATTEND Internal Medicine Gastroenterology
DX: Z12.11 Encounter for screening for malignant neoplasm of colon (principal); D17.5 Benign lipomatous neoplasm of intra-abdominal organs; K57.30 Diverticulosis of large intestine without perforation or abscess without bleeding; I12.0 Hypertensive chronic kidney disease with stage 5 chronic kidney disease or end stage renal disease; N18.6 End stage renal disease; F41.8 Other specified anxiety disorders; M54.50 Low back pain, unspecified; G89.29 Other chronic pain; E78.5 Hyperlipidemia, unspecified; F41.1 Generalized anxiety disorder; D64.9 Anemia, unspecified; Z86.73 Personal history of transient ischemic attack (TIA), and cerebral infarction without residual deficits; Z98.890 Other specified postprocedural states; Z95.828 Presence of other vascular implants and grafts; Z86.010 Personal history of colon polyps; Z88.5 Allergy status to narcotic agent; Z88.8 Allergy status to other drugs, medicaments and biological substances; Z90.49 Acquired absence of other specified parts of digestive tract; Z99.2 Dependence on renal dialysis
CPT/HCPCS: J2704; J3490; J7042

== ENCOUNTER 2023-06-19 13:27 | Emergency (ER) | payer MEDICARE, MEDICAID, OTHER ==
[2023-06-19] MEDS: Sodium Chloride 0.9% 10 ML Syringe FLUSH PRN (13:25)
[2023-06-19 13:35] LABS: BASOPHILS PERCENT AUTO 0.7 % (0.0-1.0); EOSINOPHILS PERCENT AUTO 3.1 % (1.0-3.0); HEMATOCRIT 36.4 % (37.0-47.0); HEMOGLOBIN 11.4 g/dL (12.0-16.0); LYMPHOCYTES PERCENT AUTO 18.2 % (20.5-50.1); MEAN CORPUSCULAR HEMOGLOBIN 31.6 pg (27.0-34.0); MEAN CORPUSCULAR HGB CONC 31.3 g/dL (33.0-35.0); MEAN CORPUSCULAR VOLUME 100.8 fL (80-100); MONOCYTES PERCENT AUTO 8.6 % (2-8); NEUTROPHILS PERCENT AUTO 69.4 % (42.2-75.2); PLATELET COUNT,PLT 148 10^3/uL (150-450); RED BLOOD CELL COUNT 3.61 10^6/uL (4.2-5.4); WHITE BLOOD CELL COUNT,WBC 8.9 10^3/uL (5.0-10.0)
[2023-06-19 13:56] LABS: ALBUMIN 4.1 g/dL (3.4-5.0); ANION GAP 13.6 mEq/L (7-13); BILIRUBIN TOTAL 0.4 mg/dL (0.2-1.0); BUN/CREATININE RATIO 4.5 (No establ ref range); CREATININE 2.67 mg/dL (0.55-1.02); EST CRCL DRUG DOSING (CG) 18.88 mL/min; POTASSIUM,K 3.6 mmol/L (3.5-5.1); PROTEIN TOTAL,TP 8.2 g/dL (6.4-8.2)
[2023-06-19 15:35] VITALS: BP 160/69; PULSE 67
== END 2023-06-19 15:42 | disposition home or self-care (01) ==
LOC: DL.ED 13:27
DX: R07.9 Chest pain, unspecified (principal); I12.0 Hypertensive chronic kidney disease with stage 5 chronic kidney disease or end stage renal disease; N18.9 Chronic kidney disease, unspecified; I25.10 Atherosclerotic heart disease of native coronary artery without angina pectoris; E66.9 Obesity, unspecified; Z88.8 Allergy status to other drugs, medicaments and biological substances; Z91.048 Other nonmedicinal substance allergy status; Z79.82 Long term (current) use of aspirin; Z79.899 Other long term (current) drug therapy; Z86.16 Personal history of COVID-19; Z90.49 Acquired absence of other specified parts of digestive tract; Z90.710 Acquired absence of both cervix and uterus; Z68.25 Body mass index [BMI] 25.0-25.9, adult
CPT/HCPCS: 36415; 71045; 80053; 83880; 84484; 85025; 93005; 93010; 99284; 99285; J3490

== ENCOUNTER 2023-07-10 14:40 | Emergency (ER) | payer MEDICARE, MEDICAID ==
[2023-07-10 15:50] LABS: BASOPHILS PERCENT AUTO 0.6 % (0.0-1.0); EOSINOPHILS PERCENT AUTO 1.6 % (1.0-3.0); HEMATOCRIT 34.1 % (37.0-47.0); HEMOGLOBIN 10.8 g/dL (12.0-16.0); LYMPHOCYTES PERCENT AUTO 11.3 % (20.5-50.1); MEAN CORPUSCULAR HGB CONC 31.7 g/dL (33.0-35.0); MEAN CORPUSCULAR VOLUME 100.9 fL (80-100); MONOCYTES PERCENT AUTO 8.9 % (2-8); NEUTROPHILS PERCENT AUTO 77.6 % (42.2-75.2); PLATELET COUNT,PLT 119 10^3/uL (150-450); RED BLOOD CELL COUNT 3.38 10^6/uL (4.2-5.4); WHITE BLOOD CELL COUNT,WBC 8.4 10^3/uL (5.0-10.0)
[2023-07-10] MEDS: Sodium Chloride 0.9% 10 ML Syringe FLUSH PRN (16:03)
[2023-07-10 16:09] LABS: A/G RATIO 0.8; ALANINE AMINOTRANSFERASE,ALT 18 U/L (14-59); ALBUMIN 3.5 g/dL (3.4-5.0); ALKALINE PHOSPHATASE 185 U/L (46-116); ANION GAP 14.8 mEq/L (7-13); ASPARTATE AMNIOTRANSFERASE,AST 23 U/L (15-37); BILIRUBIN TOTAL 0.4 mg/dL (0.2-1.0); BLOOD UREA NITROGEN,BUN 22 mg/dL (7-18); BUN/CREATININE RATIO 5.9 (No establ ref range); CARBON DIOXIDE,CO2 31 mmol/L (21-32); CHLORIDE,CL 102 mmol/L (98-107); CREATININE 3.73 mg/dL (0.55-1.02); ESTIMATED GFR 13 mL/min (>=60); GLUCOSE RANDOM 132 mg/dL (70-99); MAGNESIUM 1.4 mg/dL (1.8-2.4); PHOSPHORUS 3.7 mg/dL (2.6-4.7); POTASSIUM,K 3.8 mmol/L (3.5-5.1); PROTEIN TOTAL,TP 7.8 g/dL (6.4-8.2); SODIUM,NA 144 mmol/L (136-145)
[2023-07-10 16:27] VITALS: BP 146/69; PULSE 81
== END 2023-07-10 16:34 | disposition home or self-care (01) ==
LOC: DL.ED 14:40
DX: G62.9 Polyneuropathy, unspecified (principal); E83.42 Hypomagnesemia; I12.9 Hypertensive chronic kidney disease with stage 1 through stage 4 chronic kidney disease, or unspecified chronic kidney disease; N18.9 Chronic kidney disease, unspecified; I25.10 Atherosclerotic heart disease of native coronary artery without angina pectoris; K21.9 Gastro-esophageal reflux disease without esophagitis; M19.90 Unspecified osteoarthritis, unspecified site; E66.9 Obesity, unspecified; Z68.24 Body mass index [BMI] 24.0-24.9, adult; Z86.16 Personal history of COVID-19; Z90.49 Acquired absence of other specified parts of digestive tract; Z90.710 Acquired absence of both cervix and uterus; Z79.82 Long term (current) use of aspirin; Z79.899 Other long term (current) drug therapy; Z91.048 Other nonmedicinal substance allergy status; Z88.8 Allergy status to other drugs, medicaments and biological substances
CPT/HCPCS: 36415; 80053; 83735; 84100; 85025; 99283; J3490

== ENCOUNTER → 2023-12-05 20:50 | Emergency (ER) | payer MEDICARE, MEDICAID ==
[2023-12-05] MEDS: Gabapentin 400 MG Cap PO ONE (20:19)
[2023-12-05] MEDS: Acetaminophen/HYDROcodone 325-10 MG Tab PO ONE (20:19)
[2023-12-05 21:35] VITALS: BP 150/95; PULSE 89
== END | disposition home or self-care (01) ==
LOC: DL.ED 20:50
DX: G89.29 Other chronic pain (principal); M25.59 Pain in other specified joint; I25.10 Atherosclerotic heart disease of native coronary artery without angina pectoris; I10 Essential (primary) hypertension; Z95.5 Presence of coronary angioplasty implant and graft; K21.9 Gastro-esophageal reflux disease without esophagitis; I12.9 Hypertensive chronic kidney disease with stage 1 through stage 4 chronic kidney disease, or unspecified chronic kidney disease; N18.9 Chronic kidney disease, unspecified; Z99.2 Dependence on renal dialysis; Z86.16 Personal history of COVID-19; Z86.73 Personal history of transient ischemic attack (TIA), and cerebral infarction without residual deficits; Z79.82 Long term (current) use of aspirin; Z79.899 Other long term (current) drug therapy; Z88.5 Allergy status to narcotic agent; Z88.8 Allergy status to other drugs, medicaments and biological substances; Z91.048 Other nonmedicinal substance allergy status
CPT/HCPCS: 99284; A9270-GY